=== PATIENT | female | born 1980 | race Caucasian/White ===

== ENCOUNTER 2017-02-18 19:22 | Inpatient (IN) ==
[2017-02-18 20:00] LABS: URINE CULTURE NEEDED? NO; URINE MICRO REVIEW NEEDED? NO; URINE SOURCE CLEAN CATCH
[2017-02-18 20:13] LABS: BILIRUBIN URINE SMALL (NEGATIVE); BLOOD URINE NEGATIVE (NEGATIVE); COLOR YELLOW; GLUCOSE URINE NEGATIVE (NEGATIVE); LEUKOCYTES URINE NEGATIVE (NEGATIVE); NITRITE URINE NEGATIVE (NEGATIVE); PROTEIN URINE 50 mg/dL (NEGATIVE); SP GRAVITY URINE 1.028; TURBIDITY URINE CLEAR (CLEAR); UR EPITHELIAL CELLS <10 /HPF (<10); URINE BACTERIA 1+ /HPF; URINE RBC <10 /HPF (<10); URINE WBC <10 /HPF (<10); UROBILINOGEN URINE 8 mg/dL (NORMAL)
[2017-02-18] MEDS ORDERED: NS 1,000 ML IV ONE (22:00)
[2017-02-18] MEDS ORDERED: ZOFRAN IV ONE (22:00)
[2017-02-18 22:34] LABS: MANUAL DIFF NEEDED? NO
[2017-02-18 22:38] LABS: BASO% 0.2 % (0.0-0.8); EOS# 0.03 X1000 (0.0-0.7); EOS% 0.2 % (0.0-10.0); HEMATOCRIT 44.4 % (37.0-47.0); HEMOGLOBIN 15.5 g/dL (12.0-16.0); IMM GRAN# 0.03 X1000 (0.0-0.04); IMM GRAN% 0.2 % (0.0-0.5); LYMPH# 2.22 X1000 (1.2-3.4); LYMPH% 18.4 % (20.5-51.1); MCH 31.7 PG (27-31); MCHC 34.9 g/dL (33-37); MCV 90.8 FL (81-99); MONO# 0.98 X1000 (0.11-0.59); MONO% 8.1 % (1.7-9.3); MPV 9.5 FL (7.4-10.4); NEUT% 72.9 % (42.2-75.2); PLT 259 X1000 (130-400); RBC 4.89 XMIL (4.2-5.4)
[2017-02-18 22:51] LABS: AGAP 18; ALBUMIN 4.7 g/dL (3.5-5.0); ALKALINE PHOSPHATASE 72 U/L (32-104); AMYLASE 26 U/L (20-200); BUN 10 mg/dL (8-22); CALCIUM 9.9 mg/dL (8.8-10.2); CHLORIDE 99 mmol/L (98-107); COSMO 281; GOT 31 U/L (10-30); GPT 28 U/L (10-36); LIPASE 14 U/L (13-60); POTASSIUM 4.1 mmol/L (3.5-5.1); SODIUM 141 mmol/L (136-145); TCO2 24 mmol/L (25-35); TOTAL BILIRUBIN 0.63 mg/dL (0.20-1.00); TOTAL PROTEIN 8.4 g/dL (6.3-8.3)
[2017-02-18] MEDS ORDERED: COMPAZINE IV ONE (23:07)
[2017-02-18] MEDS ORDERED: COMPAZINE ONE (23:09)
[2017-02-19] MEDS ORDERED: DILAUDID IV ONE (00:04)
[2017-02-19] MEDS ORDERED: COMPAZINE IV ONE (00:15)
[2017-02-19] MEDS ORDERED: ZOSYN 3.375 GM/NS 3.375 GM/50 ML IVPB IV ONE (00:15)
[2017-02-19] MEDS ORDERED: NS 1,000 ML IV ONE (00:16)
--- NOTE | 2017-02-19 00:17 | PROVIDER DOCUMENTATION ---
This chart was entered by Leonor Hallman Scribe, acting as scribe for Baljit Roque CRNP. HPI-Abdominal Pain/GI Problem - General Chief Complaint: Abdominal Pain Stated Complaint: VOMITING, ABD PAIN Time Seen by Provider: 02/18/17 21:51 Source: patient Allergies/Adverse Reactions: Patient Allergies Allergy/AdvReac Type Severity Reaction Status Date / Time acetaminophen [From Tylenol] Allergy Severe Unknown Verified 02/18/17 22:28 ketorolac tromethamine * Allergy Severe ANAPHYLAXIS Verified 02/18/17 22:28 [From Toradol] magnesium Allergy Severe Unknown Verified 02/18/17 22:28 measles, mumps, and rubella Allergy ANAPHYLAXIS Verified 02/18/17 22:28 vaccine [measles,mumps&rubella vac live] tetanus and diphtheria Allergy ANAPHYLAXIS Verified 02/18/17 22:28 toxoids [tetanus & diphtheria toxoids] banana AdvReac VOMITING Verified 02/18/17 22:28 VACCINES Allergy NAUSEA/VOMI Uncoded 02/18/17 22:28 TING Home Medications: Home Medication List Medication Instructions Recorded Confirmed Last Taken Type Baclofen 1 tab PO TID 02/18/17 02/18/17 Unknown History Gabapentin 1 tab PO TID 02/18/17 02/18/17 Unknown History - History of Present Illness-ABD Nature of Presenting Problems: 37 year old F presents to the ED with a cc of RLQ ABD pain, nausea, and vomiting. PT states that she began having nausea and vomiting this morning around 0200 and ABD pain this afternoon. PT states that she is also having urinary hesitancy. Abdominal Pain Onset Location: reports: RUQ, RLQ Pain Radiation: reports: no radiation Quality of Pain: reports: sharp Severity in ED: reports: mild Onset/Duration: reports: this morning (0200) Timing: reports: still present Activities at Onset: reports: none Associated Symptoms: reports: nausea, vomiting Bruising or Bleeding Gums?: No Similar Symptoms Previously?: No Recently seen or treated by another doctor?: No Review of Systems - Adult - REVIEW OF SYSTEMS - ADULT Constitutional: denies: chills, fever Eyes: reports: no symptoms reported Ears, Nose, Mouth & Throat: reports: no symptoms reported Cardiovascular: reports: no symptoms reported Respiratory: reports: no symptoms reported Gastrointestinal: reports: abdominal pain, nausea, vomiting. denies: diarrhea Genitourinary: reports: hesitency. denies: dysuria, hematuria Musculoskeletal: reports: no symptoms reported Integumentary: reports: no symptoms reported Neurological: reports: no symptoms reported Psychiatric: reports: no symptoms reported Endocrine: reports: no symptoms reported Hematologic/Lymphatic: reports: no symptoms reported Allergic/Immunologic: reports: no symptoms reported All Other Systems: Reviewed and Negative Past History - Adult - PAST MEDICAL HISTORY-ADULT Review of Records: reports: Nursing Assessment Review, Medications Reviewed Major Childhood Illnesses: reports: denies history Cardiovascular: reports: denies history, palpitations Respiratory: reports: denies history Gastrointestinal: reports: GI bleed Obstetrical/Gynecological: reports: - spont/elective, ectopic , ovarian cysts Genitourinary: reports: cancer, kidney stones Musculoskeletal: reports: chronic pain, denies history, neck/back injury Neurological: reports: denies history Psychiatric: reports: anxiety, ptsd Endocrine/Immune: reports: denies history Other Conditions: reports: denies history - PRIOR SURGERIES/PROCEDURES Surgical/Procedure History: reports: BTL - IMMUNIZATION STATUS Childhood Immunizations: See Nurse Assessment Flu Vaccine: See Nurse Assessment - FAMILY HISTORY Family History: reviewed, not pertinent - SOCIAL HISTORY Smoking: cigarettes Provider spent 3-5 mins advising pt. on dangers of tobacco.: Discussed manners to quit use, and f/u contacts for add'l counseling. Substance Use: none/never Alcohol Use Frequency: never Physical Exam-General - PHYSICAL EXAM-ADULT Initial Vital Signs Reviewed: Yes - CONSTITUTIONAL General Appearance: alert, mild distress - RESPIRATORY Respiratory: chest non-tender, lungs clear, normal breath sounds - CARDIOVASCULAR Cardiovascular: normal peripheral pulses, regular rate, rhythm, no edema - GASTROINTESTINAL (ABDOMEN) Abdominal Exam: guarding, tenderness (RUQ, RLQ, R flank), McBurney's point tenderness - MUSCULOSKELETAL Back Exam: other (right lower paraspinal lumbar tenderness) - SKIN Integumentary: normal color, normal turgor, warm/dry - PSYCHIATRIC Psych/Mental Status: normal mood/affect, normal thought content, normal thought process, oriented x 3 Progress - PLAN OF CARE/RESULTS Progress/Plan/Lab Results: Vital Signs - 8 hr 02/18/17 19:35 Temperature 98.6 F Pulse Rate 84 Respiratory Rate 14 Blood Pressure 125/76 O2 Sat by Pulse Oximetry 100 Laboratory Results - last 24 hr 02/18/17 02/18/17 19:51 19:51 Urine Source CLEAN CATCH Urine Color YELLOW Urine Turbidity CLEAR Urine pH 7.0 Ur Specific [place] 1.028 Urine Protein 50 A Ur Glucose (Stick) NEGATIVE Ur Ketones (Stick) 40 A Urine Blood NEGATIVE Urine Nitrite NEGATIVE Urine Bilirubin SMALL A Urobilinogen Dipstick 8 A Urine Leukocytes NEGATIVE Urine WBC (Auto) <10 Urine RBC (Auto) <10 U Epithel Cells (Auto) <10 Urine Bacteria (Auto) 1+ Urine Test NEGATIVE Orders Category Date Time Status NPO Diet 02/18/17 19:41 Active AMYLASE [CHEM] Stat Lab 02/18/17 19:41 Uncollected CBC WITH ELECTRONIC DIFF [HEME] Stat Lab 02/18/17 19:41 Uncollected COMPREHENSIVE METABOLIC PANEL [CHEM] Stat Lab 02/18/17 19:41 Uncollected LIPASE [CHEM] Stat Lab 02/18/17 19:41 Uncollected TEST-URINE [PREG] Stat Lab 02/18/17 19:51 Completed URINALYSIS W/POSS RFLX CULT-1 [URINALYSIS] Stat Lab 02/18/17 19:51 Completed Result Diagrams: 02/18/17 22:15 02/18/17 22:15 - CT/MRI 1 CT Study: Abdomen, Pelvis Impression: Abnormal (Mild pericholecystic fluid raise the possibility of acute cholecystitis correlate clinically. There is mild colonic wall thickening that is likely incomplete distention. Mild colitis is unlikely possibility.:Dr. Bee([facility])) - CONSULTS/PCP/HOSPITALIST Notification #1 *Consult/PCP/Hospitalist*: Dr. Jiménez Time Discussed: 00:16 Consult Disposition: Admit Departure - Departure Time of Disposition Decision: 00:16 DIAGNOSIS: Acute cholecystitis Disposition: ADMITTED INPATIENT 09 Certified Medical Emergency: Emergent Condition: Stable Referrals and Follow-Ups: None,PCP [Primary Care Provider] - - Critical Care Note This patient required my direct & personal management of CC.: No Attestation - Physician/ VLADIMIR Attestation Patient care was provided by Advanced Practice Provider:: Yes Advanced Practice Provider:: Baljit Roque Advanced Practice Provider documentation review:: The Mid-level provider documentation, treatment plan and medical decision making was reviewed by the physician who agrees with all treatment and medical decision making by the P. This chart was documented by the indicated scribe, (Leonor Hallman Scribe) and accurately reflects the services I performed and decisions made by me, Baljit Roque CRNP, as attested by the provider's signature.
[2017-02-19] MEDS: ZOFRAN IV PRN ×3 (07:04→23:57)
[2017-02-19] MEDS: ZOSYN 3.375 GM/NS 3.375 GM/50 ML IVPB IV SCH ×4 (07:04→23:58)
[2017-02-19] MEDS: DILAUDID IV PRN ×2 (07:04→11:34)
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
--- NOTE | 2017-02-19 09:04 | Diag Imaging Result Document ---
PROCEDURE NAME: CT ABD/PELVIS W/ IV CONT ONLY - 02/18/2017 CT ABDOMEN PELVIS WITH IV CONTRAST ONLY: TECHNIQUE: Exam performed with intravenous contrast only per request of the referring provider. A dose reduction protocol was used. Compared with 10/19/2015. FINDINGS: There are no acute abnormalities of the liver, spleen, adrenal glands, or pancreas identified. The spleen is noted to be upper normal in size similar to the previous exam. The gallbladder is mildly distended and has mildly thickened jara. There is a small amount of fluid around the gallbladder. There are no other substantial pericholecystic inflammatory changes identified. There are no calcified gallstones seen. There is no biliary ductal dilatation identified. There is a 1.4-cm cyst at the anterior mid to lower left kidney. The bilateral kidneys otherwise enhance homogeneously. There is no hydronephrosis. There are no substantially enlarged lymph nodes identified. There is no evidence of bowel obstruction. What appears to represent the appendix shows no evidence of inflammation. There is questionable relatively diffuse colon wall thickening versus artifact of incomplete distention of the colon. There is no abscess identified. There is no free air. Images of pelvis otherwise show a 1.2-cm right ovarian cyst with mildly thickened jara. There is a small amount of free fluid in the pelvis. IMPRESSION: 1. Mildly distended gallbladder with mildly thickened jara and small amount of pericholecystic fluid. Clinical correlation as to evidence of cholecystitis is recommended. There are no calcified gallstones seen. 2. No bowel obstruction. Unremarkable appendix. 3. Questionable mild colitis. No abscess. No free air. 4. 1.2 cm right ovarian cyst with mildly thickened jara. Small amount of free fluid in pelvis. A [facility] physician provided preliminary results at 11:40 p.m. on 02/18/2017.
[2017-02-19] MEDS ORDERED: LR 1,000 ML ONE ×2 (12:38→14:33)
[2017-02-19] MEDS ORDERED: MARCAINE 0.25% PF/EPI 1:200,000 ONE (12:38)
[2017-02-19] MEDS ORDERED: SODIUM CHLORIDE 0.9% ONE (12:38)
--- NOTE | 2017-02-19 13:42 | Diag Imaging Result Document ---
PROCEDURE NAME: OPERATIVE CHOLANGIOGRAM - 02/19/2017 INTRAOPERATIVE CHOLANGIOGRAM, SINGLE VIEW TAKEN DURING A PROCEDURE PERFORMED BY DR. HOLLIDAY: FINDINGS: Contrast filled the common bile duct and has emptied into the duodenum. No stone or stricture. IMPRESSION: Normal intraoperative cholangiogram.
[2017-02-19] MEDS ORDERED: FENTANYL ONE (13:59)
[2017-02-19] MEDS ORDERED: DIPRIVAN 1% ONE (13:59)
[2017-02-19] MEDS: MORPHINE ONE ×4 (14:05→14:20)
--- NOTE | 2017-02-19 14:10 | OPERATIVE NOTE ---
PROCEDURE DATE: 02/19/2017 PROCEDURE PERFORMED: Laparoscopic cholecystectomy with operative cholangiogram. SURGEON: King Jiménez MD. FIBER TECHNOLOGIST: Katharine. PREOPERATIVE DIAGNOSIS: Acute on chronic calculous cholecystitis. POSTOPERATIVE DIAGNOSIS: Acute on chronic calculous cholecystitis. FINDINGS: The cholangiogram revealed a normal size common duct and free flow in the duodenum. No intraluminal filling defects were seen. DESCRIPTION OF PROCEDURE: Satisfactory general endotracheal anesthesia was achieved. The abdomen was prepped and draped in a sterile fashion. We anesthetized the skin in the umbilicus, made a vertical incision there, dissected the fascia, scored the fascia, and introduced an 11 trocar with Optiview technique into the abdominal cavity. We insufflated through this trocar. Under direct visualization, next a 5 trocar in the midclavicular line, 5 trocar near the anterior axillary line, and an 11 mm trocar in the mid-epigastrium. We placed the patient in reverse Trendelenburg and turned her to the left. The gallbladder was thick-walled and distended. We introduced an aspirating needle and decompressed the gallbladder. We then grasped the fundus of the gallbladder with a ratcheted Allis. We reflected it cephalad. We used a bulldog on the infundibulum and then dissected the triangle of Calot. We identified the cystic duct, clipped it near its junction with the gallbladder, incised the cystic duct, and introduced a Telma catheter. We shot the cholangiogram. The catheter had gone into the right hepatic duct. Once we had lowered the balloon and pulled it back, we saw it come out the cystic duct and the findings above were noted. We removed the cholangiogram catheter, clipped the cystic duct on the opposite side of the cystic ductotomy x2, and transected. The cystic artery was identified, clipped proximally x2, distally x1, and divided. We used the cautery spatula to then dissect the gallbladder away from the liver. The wall was very edematous and thick walled. We then the gallbladder from the liver. We changed the videolaparoscope to the mid-epigastric trocar, introduced an Endo Catch, placed the gallbladder within the bag, and delivered it out of the abdominal cavity. We looked back. Hemostasis was satisfactory. We aspirated what fluid had collected. We then decompressed the abdominal cavity and removed our trocars. We closed the fascia at the umbilicus with 2-0 Polysorb fascial stitches. We placed a 2-0 Polysorb fascial stitch in the epigastrium, as well. We then closed the skin at each incision with 4-0 Polysorb subcuticular stitches. Sterile OpSites were applied. She tolerated it well and was sent to the recovery room in satisfactory condition. cc: King Jiménez MD
[2017-02-19] MEDS ORDERED: QUELICIN (DOSE) ONE (14:33)
[2017-02-19] MEDS ORDERED: ANESTHESIA PB SET 88 IN 5742 ONE (14:33)
[2017-02-19] MEDS ORDERED: DECADRON ONE (14:33)
[2017-02-19] MEDS ORDERED: XYLOCAINE-MPF 2% ONE (14:33)
[2017-02-19] MEDS ORDERED: EXTENSION SET 32 IN 4522 ONE (14:33)
[2017-02-19] MEDS ORDERED: NEOSTIGMINE ONE (14:33)
[2017-02-19] MEDS ORDERED: NORCURON ONE (14:33)
[2017-02-19] MEDS ORDERED: ROBINUL ONE (14:33)
[2017-02-19] MEDS ORDERED: ZOFRAN ONE (14:33)
[2017-02-19] MEDS: OXY IR PO PRN ×2 (15:48→21:44)
[2017-02-19] MEDS: LIORESAL PO SCH (15:59)
[2017-02-19] MEDS: NEURONTIN PO SCH (15:59)
[2017-02-20] MEDS: OXY IR PO PRN ×2 (03:23→08:55)
[2017-02-20] MEDS: DILAUDID IV PRN (05:04)
[2017-02-20] MEDS: ZOFRAN IV PRN (05:04)
[2017-02-20] MEDS: ZOSYN 3.375 GM/NS 3.375 GM/50 ML IVPB IV SCH (06:16)
[2017-02-20 07:33] VITALS: BP 105/60
[2017-02-20] MEDS: LIORESAL PO SCH (08:54)
[2017-02-20] MEDS: NEURONTIN PO SCH (08:55)
== END 2017-02-20 10:01 | disposition home or self-care (01) ==
LOC: ED 19:22 → EDIPHOLD 02-19 00:53 → 4N 02-19 11:09
PROVIDERS: ADMIT Surgery; ATTEND Surgery